=== PATIENT | male | born 1970 | race African-American/Black ===

== ENCOUNTER 2020-12-19 15:49 | Emergency (ER) | payer OTHER ==
[2020-12-19 17:17] LABS: BASOPHIL 0.5 % (0-2); HCT 42.3 % (42.0-52.0); HGB 13.6 g/dl (13.2-18.0); LYMPHOCYTE 18.1 % (15-48); MCH 27.4 pg (25.0-31.0); MCHC 32.2 g/dL (32.0-36.0); MCV 85.1 fL (78.0-100.0); MONOCYTE 12.7 % (0-12); MPV 10.6 fL (6.0-9.5); NEUTROPHIL 66.3 % (41-80); NRBC 0; PLT 267 K/uL (150-400); RBC 4.97 M/uL (4.70-6.00); RDW 16.6 % (11.5-14.0); WBC 7.4 K/uL (4.0-10.5)
[2020-12-19 17:44] LABS: ALBUMIN 3.4 g/dL (3.4-5.0); BILIRUBIN - TOTAL 0.3 mg/dL (0.2-1.0); BUN/CREAT RATIO (CALC) 12.4 RATIO; CREATININE 0.89 mg/dL (0.67-1.17); POTASSIUM 3.9 mmol/L (3.5-5.1); TOTAL PROTEIN 7.4 g/dL (6.4-8.2)
[2020-12-19] MEDS ORDERED: VIBRAMYCIN100 MG PO (20:03)
== END 2020-12-19 20:25 | disposition home or self-care (01) ==
LOC: FER 15:49
PROVIDERS: Emergency Medicine
DX: U07.1 COVID-19 (principal); J12.82 Pneumonia due to coronavirus disease 2019
CPT/HCPCS: 36415; 71275; 80053; 85025; Q9967; U0002